=== PATIENT | female | born 1950 | race Caucasian/White ===

== ENCOUNTER 2017-06-19 07:50 | Outpatient (CLI) | payer MEDICARE | END 2017-06-19 07:51 | disposition home or self-care (01) | LOC: BICMAMMO 07:50 | PROVIDERS: ATTEND Family Medicine | DX: Z12.31 Encounter for screening mammogram for malignant neoplasm of breast (principal) | CPT/HCPCS: 77063; G0202; 77067 ==

== ENCOUNTER 2018-07-12 10:03 | Outpatient (CLI) | payer MEDICARE | END 2018-07-12 10:04 | disposition home or self-care (01) | LOC: BICMAMMO 10:03 | PROVIDERS: ATTEND Family Medicine | DX: Z12.31 Encounter for screening mammogram for malignant neoplasm of breast (principal) | CPT/HCPCS: 77063; 77067 ==

== ENCOUNTER 2019-03-01 16:00 | Outpatient (CLI) | payer MEDICARE ==
[2019-03-01 16:26] LABS: Hemoglobin 13.1 g/dL (12.0-16.0); Mean Corpuscular HGB CONC 33.7 g/dL (32.0-36.0); Mean Corpuscular Hemoglobin 31.7 pg (27.0-31.0); Mean Platelet Volume 7.5 fL (7.4-10.4); Platelet Count 263 thou/uL (130-400); RBC Distribution Width 11.9 % (11.5-14.5); Red Blood Cell (RBC) Count 4.13 mill/uL (4.20-5.40); White Blood Cell (WBC) Count 5.7 thou/uL (4.8-10.8)
[2019-03-01 16:30] LABS: Prothrombin Time 13.7 SEC (12.0-14.7)
[2019-03-01 16:41] LABS: Anion Gap 15 mmol/L (10-20); BUN (Urea Nitrogen) 19 mg/dL (9.8-20.1); Calc. Creatinine Clearance 0 mL/min (70-130); Calcium 10.2 mg/dL (7.8-10.44); Carbon Dioxide 24 mmol/L (23-31); Chloride 104 mmol/L (98-107); Estimated GFR-MDRD 55; Glucose 90 mg/dL (80-115); Potassium 4.2 mmol/L (3.5-5.1); Sodium 139 mmol/L (136-145)
== END 2019-03-01 16:01 | disposition home or self-care (01) ==
LOC: LABBT 16:00
PROVIDERS: ATTEND Urology
DX: Z01.818 Encounter for other preprocedural examination (principal); N20.1 Calculus of ureter; R10.9 Unspecified abdominal pain; R11.0 Nausea; R35.0 Frequency of micturition; R39.15 Urgency of urination; R31.0 Gross hematuria
CPT/HCPCS: 80048; 81001; 85027; 85610; 85730; 87086; 93005; 93010

== ENCOUNTER 2019-03-02 10:48 | Day surgery (SDC) | payer MEDICARE ==
[2019-03-01 16:22] VITALS: BMI 28.0
[2019-03-02] MEDS ORDERED: Levofloxacin 500 mg/D5W 100 ml Premix Bag ONE (13:34)
--- NOTE | 2019-03-02 14:10 | RAD ---
ABDOMEN ONE VIEW: 03/02/19 HISTORY: Ureteral stone. Preop. COMPARISON: CT 02/27/19. FINDINGS: The visualized bowel gas pattern is nonspecific. Projecting over the left pelvis at the expected loca tion of the distal left ureteral stone on recent CT, and a small smooth, oval, vertically oriented ca lcification is favored to correlate with the left ureteral stone on recent CT. Unfortunately, it is v lety near and partially overlies other calcifications that represent phleboliths. IMPRESSION: No new abnormalities are demonstrated. POS: TPC
[2019-03-02] MEDS ORDERED: Iothalamate Meglumine 60% 50 ML VIAL FS ONE (14:18)
[2019-03-02] MEDS ORDERED: Midazolam HCl 2 mg/2 ml Vial ONE (14:25)
[2019-03-02] MEDS ORDERED: Fentanyl 100 MCG/2 ML VIAL ONE ×3 (14:25→17:48)
[2019-03-02] MEDS ORDERED: Phenazopyridine HCl 97.5 MG TABLET ONE (16:13)
[2019-03-02] MEDS ORDERED: Oxybutynin 5 MG TAB ONE (16:13)
[2019-03-02] MEDS ORDERED: Ondansetron PF 4 MG/2 ML Vial ONE (16:18)
[2019-03-02] MEDS ORDERED: PROPOFOL 200 MG/20 ML VIAL ONE (16:18)
[2019-03-02] MEDS ORDERED: PHENYLEPHRINE-NS 100 MCG/ML 10 ML SYRINGE ONE (16:18)
[2019-03-02] MEDS ORDERED: Rocuronium Bromide 10 MG/ML (10ML VIAL) ONE (16:18)
[2019-03-02] MEDS ORDERED: Lidocaine 1% PF 5 ML VIAL ONE (16:18)
[2019-03-02] MEDS ORDERED: Glycopyrrolate 0.2 MG/ML 5 ML SYRINGE ONE (16:18)
[2019-03-02] MEDS ORDERED: Morphine 2 MG/ML SYRINGE ONE ×4 (17:03→17:47)
--- NOTE | 2019-03-02 18:14 | RAD ---
Retrograde pyelogram 4 views: DATE: 03/02/2019 HISTORY: 68-year-old female with left obstructive uropathy due to the distal left ureteral calculus. FINDINGS: Computer Lab Assistant images again demonstrates the calculus in the left hemipelvis corresponding to the distal left ureteral calculus. Injection into the left ureter demonstrates a nondilated left ureter. Contrast material is present in mildly dilated left renal collecting system. Next, a wire is placed into left renal lower pole calyx. Next, wire is replaced by double pigtail left ureteral stent. IMPRESSION: 1. Left obstructive uropathy due to distal left ureteral calculus. 2. Placement of left ureteral stent.
[2019-03-02] MEDS ORDERED: Hyoscyamine Sulfate SL 0.125 mg Tablet SL SCH (19:45)
--- NOTE | 2019-03-03 10:42 | OP ---
DATE OF PROCEDURE: 03/02/2019 PRIMARY CARE PHYSICIAN: Camden Witt MD PREOPERATIVE DIAGNOSIS: A 68-year-old female with a left 6 mm distal ureteral calculus, with nonprogression POSTOPERATIVE DIAGNOSIS: A 68-year-old female with a left 6 mm distal ureteral calculus PROCEDURES PERFORMED: Cystoscopy, left retrograde pyelogram, balloon dilatation of left intramural ureter, rigid ureteroscopy, laser lithotripsy, basket extraction of stone fragments, 6 x 22 double-J ureteral stent placement on dangler, taped to patient's pubic symphysis. ANESTHESIA: General. SPECIMENS: Stone fragments for chemical analysis. COMPLICATIONS: None apparent. DISPOSITION: To recovery room in stable condition. INDICATIONS FOR PROCEDURE AND HISTORY: Ms. Griffin is a 68-year-old female who presented to the emergency room due to left flank pain. This pain began about 2 -3 weeks ago and she desired to proceed with ureteroscopy, laser lithotripsy. CT demonstrates 4 x 6 mm distal ureteral calculus. There is a medial pelvic phlebolith calcification to the stone outside the ureter. No other stones are seen. She presents today for the above procedure. Risks and complications and indications reviewed including, but not limited to, bleeding, pain, infection, injury to adjacent organs, urosepsis, ureteral, renal, bladder injury. Possible secondary procedure reviewed. DESCRIPTION OF PROCEDURE: After an informed consent was signed, the patient was taken to the operating room, placed in a dorsal lithotomy position with the genital area prepped and draped in the usual surgical sterile fashion. Broad-spectrum antibiotics were provided. Bilateral PABLO hose SCDs placed. A 21-Nauruan cystoscope was utilized for cystoscopy, which demonstrated normal bladder mucosa. The UOs were in normal position. A left retrograde pyelogram was performed with a 1:1 diluted contrast demonstrating a filling defect consistent with a stone. A 0.035 Sensor wire was able to be passed without difficulty. At this time, we dilated the intramural ureter using [employer] 4-cm 12-Nauruan to dilate the intramural ureter. This was seen on fluoroscopy guidance. Subsequent to dilation, we were able to pass a rigid ureteroscope. I was able to make my way into the intramural ureter with ease. There was a physiologic narrowing just proximal to the intramural ureter. With peristalsis, I can see lumen of ureter at this caliber opening and closing consistent with physiologic narrowing not actual stricture. A 0.035 Sensor wire was passed to the proximal ureter and the scope was gently passed proximal to this as the stone was just beyond this. Stone was visualized, using 200 micron laser fiber, we laser lithotripsied the stone into multiple fragments. Basket extraction of stone fragments were performed uneventfully and atraumatically. Staging of the ureteral mucosa demonstrated the area that the stone was obstructing demonstrated bullous edema consistent with obstruction and adherence. I did not see any evidence of ureteral perforation or injury of concern. She does have reactive edema consistent with a stone nidus of the ureteral mucosa. We rendered this stone free, there were tiny fragments too small to basket more proximally. She was passively dilated proximal to the stone. We extracted all stones that were amendable to be extracted. At this time, a 6 x 22 double-J ureteral stent was passed over the guidewire with distal tail left in situ and taped to patient's pubic symphysis. She tolerated the procedure well and transported to the recovery room in stable condition. She was discharged with a course of ciprofloxacin until followup, VESIcare 5 mg one p.o. daily, tramadol 50 mg #30, 1-2 p.o. q.6-8 hours p.r.n. azo p.r.n., and stool softener, Colace 100 mg one p.o. b.i.d. p.r.n. The patient will follow up with me next for stent pull on dangler as there is endoscopic clearance of the stone. Job ID: [id number] MTDD
[2019-03-09 13:10] LABS: CA Oxalate Monohydrate 97 % (.); Color Brown (.); Stone Size 4x3x1 mm (.); Stone Weight 12.8 mg (.)
== END 2019-03-02 20:20 | disposition home or self-care (01) ==
LOC: SDC 10:48
PROVIDERS: ATTEND Urology
PROC: 0TF78ZZ Fragmentation in Left Ureter, Via Natural or Artificial Opening Endoscopic (ICD-10-PCS; principal; 2019-03-02)
PROC: 0T778DZ Dilation of Left Ureter with Intraluminal Device, Via Natural or Artificial Opening Endoscopic (ICD-10-PCS; 2019-03-02)
DX: N20.1 Calculus of ureter (principal); N13.8 Other obstructive and reflux uropathy; E03.9 Hypothyroidism, unspecified; E66.3 Overweight; R11.0 Nausea; Z68.28 Body mass index [BMI] 28.0-28.9, adult; Z79.1 Long term (current) use of non-steroidal anti-inflammatories (NSAID); Z79.82 Long term (current) use of aspirin; Z79.899 Other long term (current) drug therapy; Z88.1 Allergy status to other antibiotic agents; Z88.5 Allergy status to narcotic agent
CPT/HCPCS: 74018; 74420; 82365; 88300; C1758; C1769; J0690; J1956; J2001; J2250; J2270; J2405; J2704; J3010

== ENCOUNTER 2019-06-08 12:36 | Outpatient (CLI) | payer MEDICARE ==
--- NOTE | 2019-06-08 15:13 | RAD ---
KUB: Date: 06/08/19 HISTORY: Renal calculi. COMPARISON: 03/02/19. FINDINGS: Bowel gas pattern appears nonobstructed. No renal calculi are seen. Calcifications in the pelvis appe ar to represent phleboliths. One calcification which was seen in the left side of the pelvis on the p revious exam is no longer present. IMPRESSION: No definitive renal or ureteral calculi. POS: SANTINO
--- NOTE | 2019-06-08 15:17 | ULT ---
BILATERAL RENAL ULTRASOUND: Date: 06/08/19 HISTORY: Renal calculi. FINDINGS: Real-time imaging of the right and left kidneys were performed. The right kidney measures 9.3 cm and the left kidney measures 10.2 cm in size. There is minimal dilatation of both collecting systems with some slight caliceal prominence on the right. On the left side, there is very minimal dilatation of some of the lower pole collecting structures. The left-sided changes are significantly reduced as com pared to the 02/27/19 study. The bladder region appears unremarkable. In the region of the left adnexa is a 3.0 x 4.1 cm cyst. In reviewing the previous CT examination, a cyst was present at that time. It does not have any internal echoes. IMPRESSION: 1. Very minimal dilatation to both collecting systems. The bladder is not significantly distended, b ut it may account for the very minimal dilatation. The changes on the left are significantly reduced as compared to the prior exam. 2. Stable appearance to a cystic structure in the region of the left adnexa. POS: GIDEON
== END 2019-06-08 12:37 | disposition home or self-care (01) ==
LOC: BICULT 12:36
PROVIDERS: ATTEND Urology
DX: N20.0 Calculus of kidney (principal)
CPT/HCPCS: 74018; 76770

== ENCOUNTER 2019-06-13 08:31 | Outpatient (CLI) | payer MEDICARE ==
--- NOTE | 2019-06-13 10:48 | CT ---
CT ABDOMEN AND PELVIS WITHOUT CONTRAST USING STONE PROTOCOL: HISTORY: Urinary frequency and calculus. The patient had lithotripsy done. COMPARISON: 02/27/2019. FINDINGS: Absence of oral and IV contrast reduces the sensitivity of the exam, particularly for evaluation of s olid organs involved. The lung bases are clear. No calcified gallstones are seen. No free air or free fluid is noted in t he abdomen or pelvis. The small bowel loops are not abnormally dilated. A normal-appearing appendix is seen. There is colonic diverticulosis. No calculi are seen in the kidneys, ureters, or the urinary bladder. No hydroureteral nephrosis note d on either side. The previously noted left distal ureteric calculus is no longer seen. There is a 2.8 x 3.5 x 4 cm cyst in the left adnexa, likely of ovarian origin. There are vascular calcifications without evidence of aneurysmal dilatation of the abdominal aorta. There are degenerative changes and scoliosis of the spine. IMPRESSION: 1. No CT evidence of urinary tract calculi or obstruction. 2. Colonic diverticulosis. 3. Approximately 4 cm left ovarian cystic mass. This should be evaluated with a pelvic ultrasound. POS: TPC
== END 2019-06-13 08:32 | disposition home or self-care (01) ==
LOC: BICCT 08:31
PROVIDERS: ATTEND Urology
DX: N20.0 Calculus of kidney (principal); N13.39 Other hydronephrosis; R35.0 Frequency of micturition; K57.30 Diverticulosis of large intestine without perforation or abscess without bleeding; N83.8 Other noninflammatory disorders of ovary, fallopian tube and broad ligament; Z87.442 Personal history of urinary calculi
CPT/HCPCS: 74176

== ENCOUNTER 2019-07-13 09:52 | Outpatient (CLI) | payer MEDICARE ==
--- NOTE | 2019-07-13 10:16 | MMO ---
Bilateral MAMMO Bilat Screen [facility]. CLINICAL HISTORY: Patient is 68 years old and is seen for screening. The patient has no family history of breast cancer. The patient has no personal history of cancer. VIEWS: The views performed were: bilateral craniocaudal with tomosynthesis; bilateral mediolateral oblique with tomosynthesis; and left mediolateral oblique. FILMS COMPARED: The present examination has been compared to prior imaging studies performed at [facility] on 06/03/2016, 06/10/2016, 06/19/2017 and 07/12/2018. This study has been interpreted with the assistance of computer-aided detection. MAMMOGRAM FINDINGS: There are scattered fibroglandular densities. There are stable benign appearing calcifications seen in both breasts. There are no suspicious masses, suspicious calcifications, or new areas of architectural distortion. IMPRESSION: THERE IS NO MAMMOGRAPHIC EVIDENCE OF MALIGNANCY. A ROUTINE FOLLOW-UP MAMMOGRAM IN 1 YEAR IS RECOMMENDED. THE RESULTS OF THIS EXAM WERE SENT TO THE PATIENT. ACR BI-RADS Category 2 - Benign finding MAMMOGRAPHY NOTE: 1. A negative mammogram report should not delay a biopsy if a dominant of clinically suspicious mass is present. 2. Approximately 10% to 15% of breast cancers are not detected by mammography. 3. Adenosis and dense breasts may obscure an underlying neoplasm. Reported by: MALATHI LONDONO MD Electonically Signed: [id number]
== END 2019-07-13 09:53 | disposition home or self-care (01) ==
LOC: BICMAMMO 09:52
PROVIDERS: ATTEND Family Medicine
DX: Z12.31 Encounter for screening mammogram for malignant neoplasm of breast (principal)
CPT/HCPCS: 77063; 77067

== ENCOUNTER 2020-04-23 08:58 | Outpatient (CLI) | payer MEDICARE ==
--- NOTE | 2020-04-23 10:01 | CT ---
CT ABDOMEN AND PELVIS WITHOUT IV CONTRAST: INDICATION: Calculus of the ureter. HISTORY: History states left urinary calculus with a history of lithotripsy. COMPARISON: Comparison is made to a CT abdomen and pelvis of 06/13/2019. No urinary calculi were identified on th at study. FINDINGS: Lung bases clear. The liver, spleen, and pancreas are unremarkable. Adrenal glands are normal. Review of the kidneys shows no evidence of hydronephrosis. No evidence of urinary tract calculus miriam ntified. The urinary bladder is contracted and not adequately evaluated. Ureters are normal caliber . Small bowel loops appear unremarkable. Appendix is identified and appears unremarkable. Review of t he colon shows scattered diverticula with diverticulosis of the sigmoid. The transverse colon to the left including splenic flexure and upper left colon is nondistended and not well evaluated. Mucosal lesions are not excluded. Mural thickening in this region cannot be excluded by CT. Images of the pelvis show an unremarkable-appearing uterus. There continues to be a low-density cyst ic mass in the left adnexa which was described on the exam of 06/13/2019. This cystic mass has enlarg ed slightly measuring up to 4.3 cm maximal AP dimension in the axial plane today with prior similar m easurement of approximately 3.5 cm. Cystic ovarian neoplasm would be the primary concern in a patien t of this age. The visualized vertebral bodies maintain height and alignment with degenerative disk changes seen in the lumbar spine. IMPRESSION: 1. No evidence of urinary tract calculus or obstruction. 2. Cystic mass in the left adnexa again noted consistent with ovarian origin. Cystic ovarian neopla sm would be the primary concern.. This has enlarged slightly since 06/13/2019. Recommend ENVIRONMENTAL EDUCATOR consult ation if this has not been previously evaluated. POS: SARIKA
== END 2020-04-23 08:59 | disposition home or self-care (01) ==
LOC: BICCT 08:58
PROVIDERS: ATTEND Urology
DX: N20.1 Calculus of ureter (principal); N89.8 Other specified noninflammatory disorders of vagina
CPT/HCPCS: 74176; 81001; 87086

== ENCOUNTER 2020-05-14 09:22 | Outpatient (CLI) | payer MEDICARE ==
[2020-05-14] MEDS ORDERED: Iopamidol 300 61% 100 ML VIAL FS ONE (09:25)
--- NOTE | 2020-05-14 13:40 | RAD ---
IVP: DATE: 05/14/2020 HISTORY: 69-year-old female with microhematuria. FINDINGS: The driver's license reviewing officer film demonstrates no suspicious calcifications. Bilateral asymmetric nephrograms are seen f ollowing the uncomplicated IV administration of contrast. The kidneys appear normal in size, shape, position, and orientation. There is normal contrast excreti on into the pelvicaliceal system, ureters, and urinary bladder. The post-void image demonstrates a sm all amount of residual contrast in the urinary bladder. IMPRESSION: Unremarkable exam. POS: BRIENA
== END 2020-05-14 09:23 | disposition home or self-care (01) ==
LOC: RAD 09:22
PROVIDERS: ATTEND Urology
DX: R31.29 Other microscopic hematuria (principal)
CPT/HCPCS: 74410; 82565

== ENCOUNTER 2020-07-19 11:19 | Outpatient (CLI) | payer MEDICARE ==
--- NOTE | 2020-07-19 11:59 | MMO ---
Bilateral MAMMO Bilat Screen [facility]DI+DANIELE. CLINICAL HISTORY: Patient is 69 years old and is seen for screening. The patient has no family history of breast cancer. The patient has no personal history of cancer. VIEWS: The views performed were: bilateral craniocaudal with tomosynthesis and bilateral mediolateral oblique with tomosynthesis. FILMS COMPARED: The present examination has been compared to prior imaging studies performed at [facility] on 06/10/2016, 06/19/2017, 07/12/2018 and 07/13/2019. This study has been interpreted with the assistance of computer-aided detection. MAMMOGRAM FINDINGS: There are scattered fibroglandular densities. There are no suspicious masses, suspicious calcifications, or new areas of architectural distortion. IMPRESSION: THERE IS NO MAMMOGRAPHIC EVIDENCE OF MALIGNANCY. A ROUTINE FOLLOW-UP MAMMOGRAM IN 1 YEAR IS RECOMMENDED. THE RESULTS OF THIS EXAM WERE SENT TO THE PATIENT. ACR BI-RADS Category 1 - Negative MAMMOGRAPHY NOTE: 1. A negative mammogram report should not delay a biopsy if a dominant of clinically suspicious mass is present. 2. Approximately 10% to 15% of breast cancers are not detected by mammography. 3. Adenosis and dense breasts may obscure an underlying neoplasm. Reported by: DOM CAUSEY MD Electonically Signed: [id number]
== END 2020-07-19 11:20 | disposition home or self-care (01) ==
LOC: BICMAMMO 11:19
PROVIDERS: ATTEND Family Medicine
DX: Z12.31 Encounter for screening mammogram for malignant neoplasm of breast (principal)
CPT/HCPCS: 77063; 77067

== ENCOUNTER 2020-11-09 12:02 | Emergency (ER) | payer MEDICARE ==
[~2020-11-09 12:02] MED LIST: Iopamidol-370 76% 500 ML 1 ML ONE
[2020-11-09 13:16] LABS: #Basophils 0.1 thou/uL (0.0-0.2); #Monocytes 0.2 thou/uL (0.11-0.59); #Neutrophils 4.9 thou/uL (1.40-6.50); %Basophils 0.8 % (0.0-1.0); %Eosinophils 0.5 % (0.0-10.0); %Lymphocytes 16.4 % (21.0-51.0); %Monocytes 3.6 % (0.0-10.0); %Neutrophils 78.6 % (42.0-75.0); Hemoglobin 14.1 g/dL (12.0-16.0); Mean Corpuscular HGB CONC 31.8 g/dL (32.0-36.0); Mean Corpuscular Hemoglobin 30.2 pg (27.0-31.0); Mean Platelet Volume 7.8 fL (7.4-10.4); Platelet Count 255 thou/uL (130-400); Red Blood Cell (RBC) Count 4.66 mill/uL (4.20-5.40); White Blood Cell (WBC) Count 6.2 thou/uL (4.8-10.8)
[2020-11-09 13:39] LABS: ALT (SGPT) 16 U/L (8-55); AST (SGOT) 72 U/L (5-34); Albumin 4.3 g/dL (3.4-4.8); Alkaline Phosphatase 86 U/L (40-110); Anion Gap 12 mmol/L (10-20); BUN (Urea Nitrogen) 19 mg/dL (9.8-20.1); Bilirubin, Total 0.5 mg/dL (0.2-1.2); Calc. Creatinine Clearance 0 mL/min (70-130); Calcium 9.7 mg/dL (7.8-10.44); Carbon Dioxide 26 mmol/L (23-31); Chloride 105 mmol/L (98-107); Globulin 3.1 g/dL (2.4-3.5); Glucose 115 mg/dL (83-110); Potassium 4.7 mmol/L (3.5-5.1); Protein, Total 7.4 g/dL (5.8-8.1); Sodium 138 mmol/L (136-145)
[2020-11-09 13:46] LABS: Bacteria/HPF None Seen HPF (None Seen); Bilirubin Negative (Negative); Blood, Urine Negative (Negative); Clarity Clear (Clear); Glucose, Urine (Dipstick) Normal (Negative); Ketone, Urine Negative (Negative); Leukocyte Negative Leu/uL (Negative); Nitrite Negative (Negative); Protein, Urine (Dipstick) 50 mg/dL (Neg-Trace); RBC/HPF 0-3 HPF (0-3); Specific Gravity, Urine 1.031 (1.002-1.036); Squamous Epithelial 0-3 HPF (0-3); Urobilinogen Normal mg/dL (Less than 2); WBC/HPF 0-3 HPF (0-3)
== END 2020-11-09 16:22 | disposition home or self-care (01) ==
LOC: ERS 12:02
DX: N83.202 Unspecified ovarian cyst, left side (principal); E03.9 Hypothyroidism, unspecified; Z87.442 Personal history of urinary calculi; Z79.899 Other long term (current) drug therapy; Z79.82 Long term (current) use of aspirin
CPT/HCPCS: 36415; 74177; 76856; 80053; 81003; 81015; 83605; 85025; 93976; Q9967

== ENCOUNTER 2022-10-08 09:44 | Outpatient (CLI) | payer MEDICARE | END 2022-10-08 09:45 | disposition home or self-care (01) | LOC: BICMAMMO 09:44 | PROVIDERS: ATTEND Family Medicine | DX: Z12.31 Encounter for screening mammogram for malignant neoplasm of breast (principal); M81.0 Age-related osteoporosis without current pathological fracture; M85.80 Other specified disorders of bone density and structure, unspecified site | CPT/HCPCS: 77063; 77067; 77080 ==

== ENCOUNTER 2023-04-30 07:48 | Outpatient (CLI) | payer MEDICARE | END 2023-04-30 07:49 | disposition home or self-care (01) | LOC: CT 07:48 | PROVIDERS: ATTEND Family Medicine | DX: R93.421 Abnormal radiologic findings on diagnostic imaging of right kidney (principal); N28.1 Cyst of kidney, acquired | CPT/HCPCS: 74170; 82565 ==

== ENCOUNTER 2024-07-12 10:44 | Outpatient (CLI) | payer MEDICARE ==
[2024-07-12 11:57] LABS: #Basophils 0.06 10x3/uL (0.0-0.2); %Eosinophils 3.1 % (0.0-10.0); %Lymphocytes 34.9 % (21.0-51.0); %Monocytes 9.2 % (0.0-10.0); %Neutrophils 51.6 % (42.0-75.0); Hematocrit 41.9 % (36.0-47.0); Hemoglobin 13.7 g/dL (12.0-16.0); Mean Corpuscular HGB CONC 32.7 g/dL (32.0-36.0); Mean Corpuscular Hemoglobin 30.1 pg (27.0-31.0); Mean Corpuscular Volume 92.1 fL (78.0-98.0); Mean Platelet Volume 9.9 fL (7.4-10.4); Platelet Count 273 10x3/uL (130-400); RBC Distribution Width 12.9 % (11.5-14.5); Red Blood Cell (RBC) Count 4.55 mill/uL (4.20-5.40)
[2024-07-12 12:15] LABS: Anion Gap 13 mmol/L (10-20); BUN (Urea Nitrogen) 19 mg/dL (9.8-20.1); Calc. Creatinine Clearance 0 mL/min (70-130); Calcium 9.4 mg/dL (7.8-10.44); Carbon Dioxide 25 mmol/L (23-31); Chloride 107 mmol/L (98-107); Estimated GFR 71; Glucose 102 mg/dL (83-110); Sodium 141 mmol/L (136-145)
== END 2024-07-12 10:45 | disposition home or self-care (01) ==
LOC: LABBT 10:44
PROVIDERS: ATTEND Orthopaedic Surgery Hand Surgery
DX: Z01.818 Encounter for other preprocedural examination (principal); G56.03 Carpal tunnel syndrome, bilateral upper limbs
CPT/HCPCS: 80048; 85025; 93005; 93010

== ENCOUNTER 2024-07-15 05:42 | Day surgery (SDC) | payer MEDICARE ==
[2024-07-12 11:03] VITALS: BMI 29.2
[2024-07-15] MEDS ORDERED: Bacitracin Zinc Ointment 30 gm TUBE ONE (06:14)
[2024-07-15] MEDS ORDERED: Bupivacaine PF 0.5% 30 ML VIAL ONE (06:14)
[2024-07-15] MEDS ORDERED: CEFAZOLIN 2 GM VIAL ONE (07:01)
[2024-07-15] MEDS ORDERED: PROPOFOL 20 ML ONE (07:09)
[2024-07-15] MEDS ORDERED: Ondansetron PF 4 MG/2 ML Vial ONE (07:10)
[2024-07-15] MEDS ORDERED: Lidocaine 1% PF 5 ML VIAL ONE (07:10)
[2024-07-15] MEDS ORDERED: ePHEDrine Sulfate 50 MG/10 ML VIAL ONE (07:42)
[2024-07-15] MEDS ORDERED: Ketorolac Tromethamine 30 MG (1 mL) VIAL ONE (08:24)
== END 2024-07-15 09:40 | disposition home or self-care (01) ==
LOC: SDC 05:42
PROVIDERS: ATTEND Orthopaedic Surgery Hand Surgery
PROC: 01N50ZZ Release Median Nerve, Open Approach (ICD-10-PCS; principal; 2024-07-15)
DX: G56.01 Carpal tunnel syndrome, right upper limb (principal); E03.9 Hypothyroidism, unspecified; Z85.820 Personal history of malignant melanoma of skin; Z95.0 Presence of cardiac pacemaker; Z90.79 Acquired absence of other genital organ(s); Z90.722 Acquired absence of ovaries, bilateral; Z91.048 Other nonmedicinal substance allergy status; Z88.1 Allergy status to other antibiotic agents; Z88.5 Allergy status to narcotic agent; Z79.82 Long term (current) use of aspirin
CPT/HCPCS: 64721; 93005; A6223; J0665; J1885; J2405; J2704; 93010

== ENCOUNTER 2025-04-12 07:29 | Day surgery (SDC) | payer MEDICARE ==
[2025-04-12 08:24] LABS: #Basophils 0.07 10x3/uL (0.0-0.2); #Eosinophils 0.12 10x3/uL (0.0-0.7); #Monocytes 0.50 10x3/uL (0.11-0.59); #Neutrophils 2.07 10x3/uL (1.40-6.50); %Basophils 1.6 % (0.0-1.0); %Eosinophils 2.7 % (0.0-10.0); %Lymphocytes 37.6 % (21.0-51.0); %Monocytes 11.3 % (0.0-10.0); %Neutrophils 46.8 % (42.0-75.0); Hematocrit 41.2 % (36.0-47.0); Hemoglobin 13.2 g/dL (12.0-16.0); Mean Corpuscular Hemoglobin 29.5 pg (27.0-31.0); Mean Corpuscular Volume 92.0 fL (78.0-98.0); Platelet Count 235 10x3/uL (130-400); Red Blood Cell (RBC) Count 4.48 mill/uL (4.20-5.40); White Blood Cell (WBC) Count 4.42 10x3/uL (4.8-10.8)
[2025-04-12 08:45] LABS: INR-International Normal Ratio 1.1; PTT 31.7 sec (22.9-36.1); Prothrombin Time 14.1 sec (12.0-14.7)
[2025-04-12] MEDS ORDERED: Lidocaine 1% w/Epinephrine 1:100K 20 ML VIAL ONE (08:55)
[2025-04-12] MEDS ORDERED: Sodium Bicarbonate 2.5 MEQ/5 ML SDV ONE (08:55)
== END 2025-04-12 12:58 | disposition home or self-care (01) ==
LOC: ULT 07:29
PROVIDERS: ATTEND Internal Medicine Gastroenterology
PROC: 0FB23ZX Excision of Left Lobe Liver, Percutaneous Approach, Diagnostic (ICD-10-PCS; principal; 2025-04-12)
DX: K76.0 Fatty (change of) liver, not elsewhere classified (principal); K75.9 Inflammatory liver disease, unspecified; Z95.0 Presence of cardiac pacemaker; Z98.51 Tubal ligation status; Z90.79 Acquired absence of other genital organ(s); Z90.722 Acquired absence of ovaries, bilateral; Z88.1 Allergy status to other antibiotic agents; Z88.5 Allergy status to narcotic agent; Z91.048 Other nonmedicinal substance allergy status
CPT/HCPCS: 36000; 47000; 76942; 85025; 85610; 85730; J2250; 88307; 88313; 99152; J3010